=== PATIENT | female | born 1995 | race Caucasian/White ===

== ENCOUNTER 2025-01-22 23:05 | Emergency (ER) | payer SELFPAY ==
[2025-01-22 23:19] VITALS: BP 133/89
[2025-01-22] MEDS: NICODERM TRANSDERMAL 21 MG TRANSDERM (23:55)
[2025-01-22] MEDS: LAMICTAL 25 MG PO (23:55)
[2025-01-22] MEDS: RISPERDAL 0.5 MG PO (23:55)
[2025-01-22] MEDS: PROTONIX 20 MG PO (23:55)
[2025-01-23 00:30] LABS: HCG, Serum Qualitative Screen Negative
[2025-01-23 00:35] LABS: Acetaminophen < 10 ug/ml (10-30); Blood Urea Nitrogen 10 mg/dl (7-17); Calcium 9.7 mg/dl (8.4-10.2); Carbon Dioxide 23 mmol/L (22-30); Chloride 107 mmol/L (98-107); Glucose 130 mg/dl (70-99); Salicylate < 1.0 mg/dl (2.0-20.0); Sodium 137 mmol/L (135-145); eGFR > 60.00
[2025-01-23 00:36] LABS: Alcohol None Detected
[2025-01-23 00:37] LABS: % Basophils 0.7 % (0-2); % Eosinophils 0.2 % (0-6); % Immature Granulocytes 0.4 % (0-0.5); % Lymphocytes 7.1 % (20.5-51.1); % Monocytes 5.4 % (1.7-9.3); % Neutrophils 86.2 % (42.2-75.2); Absolute Basophils 0.1 10^3/uL (0-0.2); Absolute Immature Granulocytes 0.1 10^3/uL (0-0.05); Absolute Monocytes 0.8 10^3/uL (0.1-0.6); Absolute Neutrophils 11.9 10^3/uL (1.4-6.5); Hematocrit 37.3 % (37.0-47.0); Hemoglobin 12.9 g/dL (12.0-16.0); Mean Corp Hgb Conc. 34.6 g/dL (33.0-37.0); Mean Corpuscular Hgb 31.2 pg (27.0-31.0); Mean Corpuscular Volume 90.1 fL (81.0-99.0); Mean Platelet Volume 9.6 fL (7.4-10.4); Nucleated Red Blood Cells % 0 %; Platelet Count 244 10^3/uL (130-400); Red Blood Cell Count 4.14 10^6/uL (4.20-5.40); Red Cell Dist. Width 13.4 % (11.5-14.5); White Blood Cell Count 13.8 10^3/uL (4.8-10.8)
--- NOTE | 2025-01-23 01:57 | ED.GENMED ---
History of Present Illness
General
Chief Complaint: Psychiatric Problem
Source: patient and police
Exam Limitations: none
Time Seen by Provider: 01/22/25 23:08
Nursing documentation reviewed up to this point in time: agreed with
History of Present Illness
History of Present Illness:
29-year-old female brought in by police for acute manic episode. She was found screaming and causing a disturbance. Patient admits to not taking her medications in the last several days. Patient has been exhibiting paranoia. Patient began to
[place] a scene in [place] the [place] police. She was handcuffed and brought to the emergency department. His backup 302 states that she is a danger to herself and others.
Review of Systems
Review of Systems
Allergies reviewed?: Yes
All Other Systems: ROS reviewed and negative except as documented in HPI and ROS
Psychiatric: Reports anxiety, suicidal and hallucinations
Phy Exam
General Physical Exam
General Presentation: moderate distress
General age: appears stated age
General Skin: warm and dry
General Habitus: normal
General Mental: anxious, confused and verbally abusive
General Hydration: appears well hydrated
Cardiovascular Exam
Cardiovascular Exam: regular rate/rhythm
Pulmonary Exam
Pulmonary Exam: lungs clear and no respiratory distress
Neurological Exam
Neurological Exam: appears intoxicated and confused
Musculoskeletal Exam
Musculoskeletal Exam: full ROM, no edema and neuro vasc intact
Skin Exam
Skin Exam: normal color and warm/dry
Psychiatric Exam
Psychiatric Exam: normal mood/affect, agitated, anxious, delusions, hallucination and paranoia
Course
Orders/Labs/Results
Orders:
Orders
01/22/25 23:34
Lamotrigine [Lamictal] 25 mg PO NOW STA
Nicotine [Nicoderm Transdermal] 21 mg TRANSDERM NOW STA
Pantoprazole [Protonix] 20 mg PO NOW STA
01/22/25 23:37
Risperidone [Risperdal] 0.5 mg PO NOW STA
01/23/25 00:02
Test Result ONCE
01/23/25 00:05
Acetaminophen Urgent
Comment: ADDED
Alcohol Urgent
Basic Metabolic Panel Urgent
Complete Blood Count/With Diff Urgent
HCG, Serum Qualitative Screen Urgent
Salicylate Urgent
Comment: ADDED
01/23/25 00:16
Add On- LAB Urgent
Tests Added?: acetaminophen, salycilates
Abnormal Lab Results
01/23/25
00:05
WBC 13.8 H 10^3/uL
(4.8-10.8)
RBC 4.14 L 10^6/uL
(4.20-5.40)
MCH 31.2 H pg
(27.0-31.0)
Abs Immat Gran (auto) 0.1 H 10^3/uL
(0-0.05)
Absolute Neuts (auto) 11.9 H 10^3/uL
(1.4-6.5)
Absolute Lymphs (auto) 1.0 L 10^3/uL
(1.2-3.4)
Absolute Monos (auto) 0.8 H 10^3/uL
(0.1-0.6)
Neutrophils % 86.2 H %
(42.2-75.2)
Lymphocytes % 7.1 L %
(20.5-51.1)
Glucose 130 H mg/dl
(70-99)
Salicylates < 1.0 L mg/dl
(2.0-20.0)
Acetaminophen < 10 L ug/ml
(10-30)
01/23/25 00:05
01/23/25 00:05
Vital Signs
Initial and Last Documented VS:
Initial Vital Signs
Pulse Resp BP Pulse Ox
121 16 133/89 100
01/22/25 23:19 01/22/25 23:19 01/22/25 23:19 01/22/25 23:19
Last Documented Vital Signs
Pulse Resp BP Pulse Ox
121 17 133/89 100
01/22/25 23:19 01/23/25 04:00 01/22/25 23:19 01/22/25 23:19
*Pulse Oximetry
Patient hypoxic: no
*Critical Care Note
Total Time (30-74mins, 75-104mins- exclusive of procedures): Not Applicable
ED Attending Note
-
Portions of this chart may have been created with voice recognition software.� Occasional wrong word or��sound alike� substitutions may have occurred due to the inherent limitations of voice recognition software.
Discharge Plan
Departure
Date of Disposition: 01/23/25
Time of Disposition: 02:30
Instructions: Bipolar Disorder (DC), Generalized Anxiety Disorder (DC)
Interventions
Interventions:
*Risk Screen - Suicide Last Done: 01/23/25 00:14
*General Assessment Last Done: 01/23/25 01:00
*Neglect/Abuse Screening Last Done: 01/23/25 00:14
*ED- Fall Risk Assessment Last Done: 01/22/25 23:49
*ED COVID-19 Vaccine History Last Done: 01/22/25 23:49
ED-Psychological Assessment Last Done: 01/22/25 23:53
Discharge Date and Time
Print Language: MAORI
[2025-01-23] MEDS: TYLENOL 1000 MG PO (08:53)
[2025-01-23 08:58] LABS: Amphetamines Negative (Negative); Barbiturates Negative (Negative); Benzodiazepines Negative (Negative); Buprenorphine Negative (Negative); Cocaine Negative (Negative); Marijuana Positive (Negative); Methadone Negative (Negative); Methamphetamines Negative (Negative); Opiates Negative (Negative); Phencyclidine Negative (Negative); Tricyclic Antidepressants Negative (Negative)
== END 2025-01-23 09:10 ==
LOC: EMR 23:05
PROVIDERS: Emergency Medicine; EMERGENCY PHYSICIAN Student in an Organized Health Care Education/Training Program
DX: F30.9 Manic episode, unspecified (principal)
CPT/HCPCS: 99283; 80048; 80143; 80179; 80306; 82077; 84703; 85025